=== PATIENT | female | born 1975 | race Caucasian/White ===

== ENCOUNTER 2019-11-24 05:45 | Day surgery (SDC) | payer OTHER ==
[~2019-11-24] VITALS: Ht 177.8 cm; Wt 135.2 kg
--- NOTE | ~2019-11-24 | OR ---
[address] [address] Draft DATE OF OPERATION: 11/24/2019 SURGEON: Joni So DO DATE OF PROCEDURE: 11/24/2019 PREOPERATIVE DIAGNOSES: 1. Abnormal uterine bleeding. 2. Fibroid uterus. 3. Obesity. 4. Diabetes type 2. POSTOPERATIVE DIAGNOSES: 1. Abnormal uterine bleeding. 2. Fibroid uterus. 3. Obesity. 4. Diabetes type 2. 5. Pelvic adhesive disease. PROCEDURES PERFORMED: 1. Total laparoscopic hysterectomy. 2. Bilateral salpingectomy. 3. Cystoscopy. 4. Lysis of adhesions, 40 minutes. VMWARE ENGINEER: Rajiv Osullivan MD. ANESTHESIA: General. ESTIMATED BLOOD LOSS: 10 mL. SPECIMEN: Uterus, cervix, and bilateral fallopian tubes. FINDINGS: Normal external genitalia with excellent apical support. Dense adhesions of the omentum PATIENT NAME: EVA BOSS SANTOSH OPERATIVE REPORT DATE OF : 79 REPORT #: [id number] PHYSICIAN: JONI SO DO PCP: LITO BLACKBURN MD REPORT IS CONFIDENTIAL AND NOT TO BE RELEASED WITHOUT AUTHORIZATION [address] [address] Draft to the anterior abdominal wall. Normal bilateral tubes and ovaries. Enlarged multi fibroid uterus. Normal bladder and bilateral ureteral jets. Preop glucose 150s. COMPLICATIONS: None. INDICATIONS: Ms. Boss is a pleasant 44-year-old white female with a history of abnormal uterine bleeding and dysmenorrhea. Ultrasound demonstrated a 14 cm uterus with many fibroids. She failed conservative therapy and recommended that she undergo definitive therapy with total laparoscopic hysterectomy. The patient understands and wished to proceed with procedure. Diabetes was well controlled. TECHNIQUE: The patient was taken to the operating room. A time-out was performed to confirm correct patient and correct procedure. General anesthesia was adequately established. The patient was prepped and draped in the dorsal lithotomy position with her feet in Yellofin stirrups. ICPs were on a running. Patient received Ancef 3 g preoperatively per SCIP protocol and also received heparin preoperatively based on preemie scoring. A Sanchez catheter was inserted and the anterior lip of the cervix was grasped with an Allis clamp. Cervix was gently dilated using Hegar dilators and a VCare uterine manipulator was placed without difficulty. Surgeon's gloves were changed. Attention was turned to the abdomen. An infraumbilical incision was made after injection with local anesthetic. Incision was carried down to the fascia. The fascia was grasped with hemostats, elevated, and entered sharply. Fascial incision was extended bilaterally using sharp dissection with Metzenbaum scissors. The peritoneum was then bluntly entered and Levi port was placed. Pneumoperitoneum was established. Dense omental adhesions were noted throughout the pelvis to the anterior abdominal wall. Three additional assist ports were then placed, one in the left lower quadrant, one in the right lower quadrant, and one suprapubic all without complication under direct visualization. Once trocars were established, careful dissection of the omental adhesions was performed with the LigaSure device insuring that no loops of bowel were included in the omental adhesions. Omental adhesions were brought down without complication and attention was turned to the hysterectomy. The left fallopian tube was grasped and elevated and dissected along the mesosalpinx using LigaSure device. The fallopian tube was removed and sent for further evaluation. The left uteroovarian ligament was fulgurated and divided with good hemostasis. The left round ligament was then fulgurated and divided. The leaves of the broad ligament were divided. The anterior leaf was dissected down, past the midline and the bladder was pushed well below the vaginal cup. The posterior leaf of the broad ligament was dissected to the uterosacral ligament and then to the midline. Uterine vessels were identified, fulgurated and divided with good hemostasis. The process was repeated on the right side. The fallopian tube was divided along the mesosalpinx and PATIENT NAME: EVA BOSS [facility] OPERATIVE REPORT DATE OF : 79 REPORT #: [id number] PHYSICIAN: JONI SO DO PCP: LITO BLACKBURN MD REPORT IS CONFIDENTIAL AND NOT TO BE RELEASED WITHOUT AUTHORIZATION [facility] [address] [place] [id number] Draft removed. The right utero-ovarian ligament was fulgurated, divided. The right round ligament was fulgurated divided. The leaves of the broad ligament were dissected. The bladder was pushed well below the cervical cup and uterine vessels fulgurated and divided with good hemostasis. Colpotomy was then performed using Sonicision device starting 6 o'clock and completing without difficulty. Good hemostasis was appreciated. The uterus and cervix were delivered through the vagina and the vagina was stuffed with a wet lap and a glove to maintain pneumoperitoneum. The pelvis was irrigated and found to be hemostatic. The posterior peritoneum was grasped with a clamp and hysterotomy was repaired using V-Loc suture with an Endostitch device with careful attention to incorporate the bilateral uterosacral ligaments and vaginal epithelium with each suture. Colpotomy was repaired without difficulty with excellent apical support. The pelvis was again irrigated and found to be hemostatic. Pneumoperitoneum was reduced and fascia was repaired using 0 Vicryl in a running nonlocked manner after removal of the Levi port. The assist ports were then removed and the skin was reapproximated using 4-0 Monocryl in a subcuticular stitch with excellent hemostasis and cosmesis. Attention was then turned to cystoscopy. The Sanchez catheter was removed and a 70 degree diagnostic cystoscope was placed at the urethral meatus and advanced under direct visualization into the bladder. Normal bladder dome and bilateral ureteral jets were noted. The bladder was drained. Sanchez catheters were inserted. The patient was taken to PACU in good and stable condition. Sponge, needle, and instrument counts were correct x2 at the end of the procedure. Dr. Osullivan was present, participated in all portions of the procedure. Joni So DO JDW/MODL /[id number] Copies: ~ PATIENT NAME: EVA BOSS SANTOSH OPERATIVE REPORT DATE OF : 79 REPORT #: [id number] PHYSICIAN: JONI SO DO PCP: LITO BLACKBURN MD REPORT IS CONFIDENTIAL AND NOT TO BE RELEASED WITHOUT AUTHORIZATION
[~2019-11-24 05:45] MED LIST: ALBUTEROL SULF8.5 GM INH; AMLODIPINE BESYL5 MG PO; ESCITALOPRAM OX20 MG PO; GUAIATUSSIN AC10 ML PO; HYDROCHLOROTHIA25 GM MISC; HYDROCHLOROTHIA25 MG PO; METFORMIN HCL500 MG PO; NAPROSYN500 MG PO; SPIRONOLACTONE50 MG PO
[2019-11-24] MEDS ORDERED: TYLENOL EXTRA500 MG PO (06:02)
[2019-11-24] MEDS ORDERED: IBUPROFEN200 MG PO (06:03)
--- NOTE | 2019-11-24 10:21 | NUR ---
11/24/19 1021 Sheets,Evy 1014 PT ARRIVED TO PACU ON ORAL AIRWAY IN PLACE AND ON 6L VIA MASK. PT NONAROUSABLE TO PAINFUL STIMULI. VSS. CBG 238.
--- NOTE | 2019-11-24 11:06 | NUR ---
SCANT AMOUNT OF BRIGHT, YELLOW URINE NOTED TO RIOS OVERNIGHT BAG. RIOS BALLOON IS DEFLATED AND RIOS IS DC WNL. PATIENT TOLERATES THAT WELL. PATIENT TAKES SIPS OF WATER AND TOLERATES THAT WELL. PATIENT'S MOTHER IS AT THE BEDSIDE AND QUITE ATTENTIVE TO HER NEEDS.
--- NOTE | 2019-11-24 11:19 | NUR ---
CPAP MACHINE IS IN PLACE. OXYGEN SATURATION REMAINS 88% WITH CPAP IN PLACE. CPAP IS REMOVED AND OXYGEN @ 3L VIA NC IS ON. CONTINUOUS PULSE OXIMETER REMAINS IN PLACE.
--- NOTE | 2019-11-24 11:31 | NUR ---
OXYGEN SATURATION REMAINS 88% ON 3L VIA NC. OXYGEN CONNECTED TO CPAP MACHINE. CONTINUOUS PULSE OXIMETER IN PLACE.
--- NOTE | 2019-11-24 12:07 | NUR ---
MORE ICED WATER GIVEN. CRACKERS GIVEN. PATIENT IS UP TO THE BEDSIDE COMMODE AND TRANSFERS HERSELF WELL. PATIENT IS UNABLE TO VOID. PATIENT IS BACK IN BED. CALL LIGHT IS WITHIN REACH.
--- NOTE | 2019-11-24 13:41 | NUR ---
LE 1310: PATIENT IS UP TO THE BEDSIDE COMMODE AND VOIDS 500 ML BRIGHT, YELLOW URINE. PATIENT IS BACK IN BED. TRINY ADAM IS ON COOL. PATIENT HAS REMOVED HER CPAP MACHINE AND IS TALKING WITH HER MOTHER. PATIENT DENIES NAUSEA AFTER EATING CRACKERS.
[2019-11-24] MEDS ORDERED: MOTRIN IB200 MG PO (14:14)
[2019-11-24] MEDS ORDERED: NORCO 5-325 TA1 EACH PO (14:14)
--- NOTE | 2019-11-24 14:46 | NUR ---
SAHRA BENDER INFORMED OF PATIENT'S NUMBNESS IN HER HANDS. YULIA IS IN TO TALK WITH THE PATIENT.
--- NOTE | 2019-11-24 15:04 | NUR ---
HARD COPY PRESCRIPTION GIVEN TO PATIENT'S MOTHER. PATIENT DECLINES OFFER OF ADDITIONAL PRN FOR PAIN. PATIENT'S SPOUSE IS AT THE BEDSIDE. MORE ICED WATER IS GIVEN.
--- NOTE | 2019-11-24 16:48 | NUR ---
LE 1535: PATIENT IS GETTING DRESSED IN THE PRESENCE OF HER FAMILY. PATIENT VOIDS. ICED WATER IS GIVEN. ICE PACK IS GIVEN PER PATIENT'S REQUEST. PATIENT TRANSFERS HERSELF INTO THE WHEELCHAIR AND THEN TO PERSONAL VEHICLE AND TOLERATES THAT WELL.
--- NOTE | 2019-11-30 12:13 | PATH ---
[facility] [address], [place] [address] Signed SPECIMEN(S): A UTERUS, CERVIX AND TUBES SPECIMEN SOURCE: A. UTERUS, CERVIX AND TUBES CLINICAL HISTORY: Abnormal uterine bleeding; uterine leiomyoma. TLH, BSO, cysto. FINAL PATHOLOGIC DIAGNOSIS: Uterus, cervix, and bilateral fallopian tubes, hysterectomy and bilateral salpingectomy: - Cervix: Chronic and focal acute inflammation with reactive changes. - Endometrium: Simple and focal complex hyperplasia without atypia arising from proliferative-appearing endometrium. - Myometrium: Leiomyomata (3.1 cm in greatest dimension). - Serosa: No histopathologic abnormality. - Fallopian tubes: No histopathologic abnormality. - Negative for atypia or malignancy. - See comment. COMMENT: Significant tissue autolysis is present in the endometrium, precluding complete histologic examination. However, additional sections of the endometrium were examined and no atypia or carcinoma is identified. NAL:cml:C2NR MICROSCOPIC EXAMINATION: Histologic sections of all submitted blocks are examined by light microscopy. These findings, together with the gross examination, support the pathologic diagnosis. GROSS DESCRIPTION: The specimen, labeled "Eva Osman," and designated on the requisition "bilateral fallopian tubes, uterus cervix," is received in formalin and consists of a 192 gram uterus and cervix were fallopian tubes. The uterus is 5.4 x 5.5 x 11.6 cm (cornu-cornu x anterior-posterior x fundus-ectocervix). The serosal surface is violaceous and focally congested. The ectocervical mucosa is pale pink and smooth. Serial sectioning of the cervix fails to demonstrate any gross abnormalities. The triangular endometrial cavity is lined by a pink-red PATIENT NAME: EVA OSMAN PATHOLOGY DATE OF : 79 REPORT #: [id number] PHYSICIAN: POONAM PATHOLOGY PCP: LIOT BLACKBURN MD REPORT IS CONFIDENTIAL AND NOT TO BE RELEASED WITHOUT AUTHORIZATION [facility] [address], [place] [address] Signed smooth endometrium that has an average thickness of 0.3 cm. Sectioning through the uterus reveals a pink markedly trabeculated myometrium with two pink well-circumscribed intramural nodules that measure 0.7 cm and 3.1 cm in greatest dimension. These nodules have a pink whorled cut surface. The first fallopian tube is 5.8 x 0.7 cm, with delicate fimbriae and paratubal cysts. The serosa is violaceous and smooth with paratubal cysts. Cut sections reveal a pinpoint lumen. The second fallopian tube is 4.9 x 1.2 cm, with delicate fimbriae and paratubal cysts. The serosa is violaceous and smooth and inked blue. Cut sections reveal a pinpoint lumen. Take Off Man sections are submitted in four cassettes. Cassette summary: (A1) cervix (A2) uterine wall (A3) intramural nodules (A4) first and second fallopian tube (second tube inked blue). FB (under the direct supervision of a pathologist) Per request by Dr. Macias two additional blocks of endometrium are submitted in two cassettes (A5-A6). -AI 11/29/19 9:30 AM The Gross Description was prepared using a voice recognition system. The report was reviewed for accuracy; however, sound-alike word errors, addition and/or deletions may occur. If there is any question about this report, please contact Client Services. PERFORMING LABORATORY: The technical component was performed by [employer], [address] [place] [id number] ([employer] Specialist: Cindy Alejandro MD; CLIA# [id number]). Professional interpretation was performed by [facility], [address] [address] (CLIA# [id number]). Diagnostician: Heide Macias MD Pathologist Electronically Signed 11/30/2019 Copies: PATIENT NAME: EVA OSMAN SANTOSH PATHOLOGY DATE OF : 79 REPORT #: [id number] PHYSICIAN: POONAM PATHOLOGY PCP: LITO BLACKBURN MD REPORT IS CONFIDENTIAL AND NOT TO BE RELEASED WITHOUT AUTHORIZATION [facility] [address], [place] [address] Signed ~ PATIENT NAME: EVA OSMAN PATHOLOGY DATE OF : 79 REPORT #: [id number] PHYSICIAN: POONAM ASENCIO PCP: LITO BLACKBURN MD REPORT IS CONFIDENTIAL AND NOT TO BE RELEASED WITHOUT AUTHORIZATION
== END 2019-11-24 16:40 | disposition home or self-care (01) ==
LOC: DS 05:45 → OPS 05:45
PROVIDERS: Obstetrics & Gynecology
PROC: 0UT94ZZ Resection of Uterus, Percutaneous Endoscopic Approach (ICD-10-PCS; principal; 2019-11-24 06:45)
PROC: 0UT74ZZ Resection of Bilateral Fallopian Tubes, Percutaneous Endoscopic Approach (ICD-10-PCS; 2019-11-24 06:45)
PROC: 0TJB8ZZ Inspection of Bladder, Via Natural or Artificial Opening Endoscopic (ICD-10-PCS; 2019-11-24 06:45)
DX: D25.9 Leiomyoma of uterus, unspecified (principal); E11.9 Type 2 diabetes mellitus without complications; N73.6 Female pelvic peritoneal adhesions (postinfective); I10 Essential (primary) hypertension; G47.30 Sleep apnea, unspecified; E66.9 Obesity, unspecified; Z79.84 Long term (current) use of oral hypoglycemic drugs; Z79.899 Other long term (current) drug therapy; Z98.890 Other specified postprocedural states; Z68.41 Body mass index [BMI] 40.0-44.9, adult; Z88.5 Allergy status to narcotic agent
CPT/HCPCS: 00840; J0330; J0690; J1644; J1885; J2001; J2405; J2704; J2765; J3010; J3475; J7121

== ENCOUNTER 2021-09-03 18:56 | Emergency (ER) | payer OTHER ==
[~2021-09-03] VITALS: Ht 177.8 cm; Wt 135.2 kg
[~2021-09-03 18:56] MED LIST changes: +IBUPROFEN200 MG PO; +MOTRIN IB200 MG PO; +NORCO 5-325 TA1 EACH PO; +TYLENOL EXTRA500 MG PO
[2021-09-03] MEDS ORDERED: GLIMEPIRIDE2 MG PO (19:55)
[2021-09-03] MEDS ORDERED: TRAMADOL HCL50 MG PO (20:35)
== END 2021-09-03 21:05 | disposition home or self-care (01) ==
LOC: ED 18:56
DX: S66.307A Unspecified injury of extensor muscle, fascia and tendon of left little finger at wrist and hand level, initial encounter (principal); M20.012 Mallet finger of left finger(s); W22.8XXA Striking against or struck by other objects, initial encounter; I10 Essential (primary) hypertension; G47.30 Sleep apnea, unspecified; Z88.5 Allergy status to narcotic agent; Z91.018 Allergy to other foods; Z79.899 Other long term (current) drug therapy; Z79.84 Long term (current) use of oral hypoglycemic drugs
CPT/HCPCS: 29130; 73140; 99283-25

== ENCOUNTER 2023-02-03 07:43 | Day surgery (SDC) | payer OTHER ==
[2023-01-29 08:52] VITALS: BP 134/92
[~2023-02-03] VITALS: Ht 177.8 cm; Wt 132.7 kg
[~2023-02-03 07:43] MED LIST changes: +GLIMEPIRIDE2 MG PO; +TRAMADOL HCL50 MG PO
[2023-02-03 08:13] VITALS: BP 111/72
--- NOTE | 2023-02-03 10:12 | NUR ---
02/03/23 1012 Jessica Castellanos 0951 PT ARRIVED IN PACU SLEEPY WITH NO C/O'S. 0955 AT BEDSIDE HAVING PT SMILE AND WHISTLE WITH NO DEFICITS NOTED. 1012 RESTING. REU.
[2023-02-03 10:40] VITALS: BP 126/69
--- NOTE | 2023-02-03 10:42 | NUR ---
LE 1037 PATIENT BACK TO ROOM 5. VITAL SIGNS COMPLETE. PATIENT DROWSY BUT ORIENTED. REPORT RECIEVED FROM ELAN, CHING. PATIENT DROWSY AND ON 2 LITERS OF OXYGEN VIA NASAL CANNULA. BREATHING EQUAL AND UNLABORED. OXYGEN SATURATIONS ABOVE 90%. PATIENT SURGICAL SITE HAS NO DRAINAGE AT THIS TIME. SCD'S ON. IVF INFUSING. LE 1040 PATIENT TITRATED OFF OXYGEN THIS RN IN ROOM MONITORING OXYGEN SATURATIONS. MOTHER AT BEDSIDE. CONTINOUS PULSE OX ON. PATIENT GIVEN CALL LIGHT. NO FUTHER NEEDS. NO QUESTIONS AT THIS TIME.
[2023-02-03 11:46] VITALS: BP 121/57
--- NOTE | 2023-02-03 12:03 | NUR ---
LE 1145 PATIENT HAS MET DISCHARGE CRITERIA. PATIENT ALERT AND ORIENTED. BREATHING EQUAL AND UNLABORED. OXYGEN SATURATIONS ABOVE 90% ON ROOM AIR. PATIENT GIVEN DISCHARGE INSTRUCTIONS AND UNDERSTOOD. NO QUESTIONS AT THIS TIME. PATIENT IV D/C'D WNL. PATIENT WHEELED OUT OF FACILITY TO PRIVATE AUTO WITH MOTHER. NO FUTHER NEEDS.
--- NOTE | 2023-02-03 13:24 | EKG ---
[facility] [address] [facility] [place] [address] Signed Normal sinus rhythm Normal ECG When compared with ECG of 21-NOV-2019 15:09, No significant change was found Confirmed by Luis Eduardo Ayala MD () on 02/03/2023 1:24:41 PM Electronically Signed By: LUIS EDUARDO AYALA MD 02/03/23 1324 PATIENT NAME: EVA BOSS SANTOSH Electrocardiogram DATE OF : 79 PHYSICIAN: LUIS EDUARDO AYALA MD REPORT #: [id number] REPORT IS CONFIDENTIAL AND NOT TO BE RELEASED WITHOUT AUTHORIZATION
--- NOTE | 2023-02-05 15:59 | PATH ---
[facility] [address] [facility] [place] [address] Signed SPECIMEN(S): A LEFT NECK SPECIMEN SOURCE: A. LEFT NECK CLINICAL HISTORY: Pre: L neck mass. Post: Left neck mass. FINAL PATHOLOGIC DIAGNOSIS: Left neck mass: - Benign fibrous tissue with focal small lymphoid aggregates. - Negative for evidence of epithelial malignancy or high grade lymphoid neoplasia on routine HE stained sections. COMMENT: As part of [employer] Quality Improvement Program, this case was reviewed by another member of our pathology staff. JVR:DS:[facility] MICROSCOPIC EXAMINATION: Histologic sections of all submitted blocks are examined by light microscopy. These findings, together with the gross examination, support the pathologic diagnosis. GROSS DESCRIPTION: The specimen, labeled and designated "Dawson, left neck," is received in formalin and consists of two irregularly-shaped pieces of red to brown-cabral soft tissue (0.7 x 0.5 x 0.5 cm and 0.7 x 0.6 x 0.4 cm). The tissues are differentially inked blue and black respectively, and submitted entirely in cassette (A1). VB (under the direct supervision of a pathologist) The Gross Description was prepared using a voice recognition system. The report was reviewed for accuracy; however, sound-alike word errors, addition and/or deletions may occur. If there is any question about this report, please contact Client Services. PERFORMING LABORATORY: Technical component was performed by [employer], [address] [place] [id number] (CLIA# [id number]). Professional interpretation was performed by [facility], [address] [place] [address], [place] [address] (CLIA#: [id number]). PATIENT NAME: EVA BOSS PATHOLOGY DATE OF : 79 REPORT #: [id number] PHYSICIAN: [facility] PCP: LITO BLACKBURN MD REPORT IS CONFIDENTIAL AND NOT TO BE RELEASED WITHOUT AUTHORIZATION [address] [address] Signed Diagnostician: Collin Merritt MD Pathologist Electronically Signed 02/05/2023 Copies: ~ PATIENT NAME: EVA BOSS PATHOLOGY DATE OF : 79 REPORT #: [id number] PHYSICIAN: POONAM PATHOLOGY PCP: LITO BLACKBURN MD REPORT IS CONFIDENTIAL AND NOT TO BE RELEASED WITHOUT AUTHORIZATION
--- NOTE | 2023-02-10 14:19 | OR ---
[facility] [address] [place], [place] [address] Signed DATE OF OPERATION: 02/03/2023 SURGEON: Sanford Balderas MD PREOPERATIVE DIAGNOSIS: Left neck mass. POSTOPERATIVE DIAGNOSIS: Left neck mass. PROCEDURE: Excision of left neck mass. ANESTHESIA: General orotracheal; ADMINISTRATIVE INTERN, Norman. PREOPERATIVE HISTORY: Humera is a 47-year-old lady, who has had a left neck mass for several years. This responded to antibiotics initially. Has been persistent afterwards, somewhat tender. She was taken to the operating room for excision. OPERATIVE PROCEDURE AND FINDINGS: After informed consent, the patient was taken to the operating room, placed in supine position where general orotracheal anesthesia was induced. The patient and procedure were verified. Head was turned to the right. The neck mass in question measured about centimeter was fairly superficial just inferior to the earlobe, left side. Left neck was sterilely prepped and draped. Incision was drawn over the mass a fingerbreadth or so inferior to the angle of the mandible, transverse direction. 1% lidocaine with epi was injected. Incision was made through skin, subcutaneous tissue. There was lots of thickened fibrous tissue present. A small 1 cm area of granulation tissue which was removed. Some thickened fibrous tissue also excised. No other suspicious lesions areas in question. The hemostasis was obtained with needle point cautery. The wound was lavaged with saline and closed with 4-0 interrupted Vicryl subcu and arielle on the skin. The skin was cleansed. Neosporin ointment was applied. The patient was awakened, extubated, transported to recovery room in good condition. No complications. BLOOD LOSS: Minimal. SPECIMEN: Electronically Signed By: SANFORD BALDERAS MD 02/10/23 1419 PATIENT NAME: HUMERA BOSS OPERATIVE REPORT DATE OF : 79 REPORT #: [id number] PHYSICIAN: SANFORD BALDERAS MD PCP: LITO BLACKBURN MD REPORT IS CONFIDENTIAL AND NOT TO BE RELEASED WITHOUT AUTHORIZATION [facility] [address] [place] [address] Signed Left neck mass to pathology. DRAINS: No drains. Sanford Balderas MD GC/MILIL /[id number] Copies: ~ Electronically Signed By: SANFORD BALDERAS MD 02/10/23 1419 PATIENT NAME: HUMERA BOSS OPERATIVE REPORT DATE OF : 79 REPORT #: [id number] PHYSICIAN: SANFORD BALDERAS MD PCP: LITO BLACKBURN MD REPORT IS CONFIDENTIAL AND NOT TO BE RELEASED WITHOUT AUTHORIZATION
== END 2023-02-03 11:45 | disposition home or self-care (01) ==
LOC: OPS 07:43 → DS 07:43 → OPS 09:00
PROVIDERS: ATTEND Otolaryngology
PROC: 0HB4XZZ Excision of Neck Skin, External Approach (ICD-10-PCS; principal; 2023-02-03 09:00)
DX: R22.1 Localized swelling, mass and lump, neck (principal); G47.33 Obstructive sleep apnea (adult) (pediatric); I10 Essential (primary) hypertension; E11.9 Type 2 diabetes mellitus without complications; Z79.84 Long term (current) use of oral hypoglycemic drugs; Z99.89 Dependence on other enabling machines and devices
CPT/HCPCS: 00300; 93005; 93010; J0780; J1100; J1885; J2001; J2405; J2704; J3010; J3490; J7121